=== PATIENT | female | born 1995 | race African-American/Black ===

== ENCOUNTER 2020-04-26 04:13 | Emergency (ER) | payer SELFPAY ==
--- NOTE | 2020-04-26 04:41 | Event Note ---
Date: 04/26/20 The patient was evaluated in the emergency department for symptoms described in the history of present illness. He/she was evaluated in the context of the global COVID-19 pandemic, which necessitated consideration that the patient might be at risk for infection with the virus that causes COVID-19. Institutional protocols and algorithms that pertain to the evaluation of patients at risk for COVID-19 are in a state of rapid change based on information released by regulatory bodies including the CDC and federal and state organizations. These policies and algorithms were followed during the patient's care in the emergency department. Please note that these policies, procedures and recommendations changed on a rapid basis. 24-year-old female, brought to the hospital by emergency medical services. EMS states they picked up the patient at a local gas station. Patient states that she was in a car, with a friend, and started to feel anxious, and walked outside and discussed with the crisis counselor on the phone. She then called 911. The patient is alert and oriented to name, place, location, and month. The patient is not homicidal or suicidal. She does not want to overdose. She does not have access to guns or to firearms. However she seems anxious, somewhat paranoid, and somewhat distracted. She states that a few months, or a few years ago, she was treated for neurosyphilis. She states that she was on penicillin injections, but has not received an injection in 4 to 5 months. She also complains of left ocular discomfort, and floaters. She has no meningeal signs. She is alert and oriented to name, place, location and month, able to add 4+4, subtract 100-7, and recall 3 out of 3 words at x0, and 5 minutes. She has no meningeal signs. She states she has been treated at [facility] in the past. She does not have meningeal signs at this time. Obtain psychiatric consultation, old medical records, appropriate laboratory studies, visual acuity.
[2020-04-26 05:16] LABS: Basophils # (Auto) 0.1 K/mm3 (0.0-0.1); Basophils % (Auto) 0.7 % (0.0-1.8); Eosinophils % (Auto) 0.6 % (0.0-4.3); Hematocrit 41.2 % (30.3-42.9); Lymphocytes # (Auto) 1.9 K/mm3 (1.2-5.4); Lymphocytes % (Auto) 23.6 % (13.4-35.0); Mean Corpuscular HGB Conc 34 % (30-34); Mean Corpuscular Volume 90 fl (79-97); Monocytes # (Auto) 0.7 K/mm3 (0.0-0.8); Monocytes % (Auto) 8.4 % (0.0-7.3); Platelet Count 487 K/mm3 (140-440); Red Blood Count 4.57 M/mm3 (3.65-5.03); Red Cell Distribution Width 13.7 % (13.2-15.2)
[2020-04-26 05:33] LABS: Alanine Aminotransferase 7 units/L (7-56); Albumin 4.7 g/dL (3.9-5); Blood Urea Nitrogen 6 mg/dL (7-17); Calcium 9.7 mg/dL (8.4-10.2); Hemolysis Index 7
[2020-04-26 05:34] LABS: BUN/Creatinine Ratio 20
[2020-04-26 05:36] LABS: Amphetamine Screen,Urine PRESUMPTIVE NEGATIVE; Benzodiazepines Screen,Urine PRESUMPTIVE NEGATIVE; Bilirubin,Urine NEG (Negative); Blood,Urine MOD (Negative); Cannabinoid Screen,Urine PRESUMPTIVE NEGATIVE; Cocaine Screen,Urine PRESUMPTIVE POSITIVE; Color,Urine Yellow (Yellow); Methadone Screen,Urine PRESUMPTIVE NEGATIVE; Mucus,Urine FEW /HPF; Opiate Screen,Urine PRESUMPTIVE NEGATIVE; Protein,Urine <15 mg/dL mg/dL (Negative); Urobilinogen,Urine < 2.0 mg/dL (<2.0)
[2020-04-26 06:57] VITALS: BP 102/52
== END 2020-04-26 06:15 | disposition left against medical advice (07) ==
LOC: ED 04:13 → EEVIPCON 04:13 → ED 06:15
DX: F41.9 Anxiety disorder, unspecified (principal); Z53.21 Procedure and treatment not carried out due to patient leaving prior to being seen by health care provider
CPT/HCPCS: 36415; 80053; 80307; 80320; 81001; 82550; 83735; 84443; 84702; 85025; G0480

== ENCOUNTER 2020-06-12 12:01 | Emergency (ER) | payer SELFPAY ==
[2020-06-12 12:56] VITALS: BP 107/56
== END 2020-06-12 18:30 | disposition left against medical advice (07) ==
LOC: ED 12:01
DX: G62.9 Polyneuropathy, unspecified (principal); Z53.21 Procedure and treatment not carried out due to patient leaving prior to being seen by health care provider

== ENCOUNTER 2020-06-13 04:30 | Emergency (ER) | payer SELFPAY ==
[2020-06-13] MEDS ORDERED: ACETAMINOPHEN 500 MG TAB PO ONE (04:44)
[2020-06-13] MEDS ORDERED: ONDANSETRON 4 MG ODT TAB PO ONE (04:44)
[2020-06-13 05:29] LABS: Alanine Aminotransferase 7 units/L (7-56); Albumin 5.4 g/dL (3.9-5); BUN/Creatinine Ratio 23; Blood Urea Nitrogen 18 mg/dL (7-17); Calcium 10.3 mg/dL (8.4-10.2); Hemolysis Index 82
[2020-06-13 05:36] LABS: Hematocrit 53.8 % (30.3-42.9); Hemoglobin 17.4 gm/dl (10.1-14.3); Mean Corpuscular HGB Conc 32 % (30-34); Mean Corpuscular Volume 96 fl (79-97); Platelet Count 371 K/mm3 (140-440); Red Blood Count 5.63 M/mm3 (3.65-5.03); Red Cell Distribution Width 14.3 % (13.2-15.2)
[2020-06-13 05:59] LABS: Bilirubin,Urine NEG (Negative); Blood,Urine SM (Negative); Color,Urine Yellow (Yellow); Mucus,Urine FEW /HPF; Urobilinogen,Urine < 2.0 mg/dL (<2.0)
[2020-06-13] MEDS ORDERED: SODIUM CHLORIDE 0.9% 1000 ML 1,000 ML IV ONE ×2 (06:27→09:20)
--- NOTE | 2020-06-13 06:56 | XRay Report ---
CHEST 1 VIEW INDICATION / CLINICAL INFORMATION: dizziness. COMPARISON: None available. FINDINGS: SUPPORT DEVICES: None. HEART / MEDIASTINUM: No significant abnormality. LUNGS / PLEURA: No significant pulmonary or pleural abnormality. No pneumothorax. ADDITIONAL FINDINGS: No significant osseous abnormality. IMPRESSION: 1. No acute findings. Signer Name: Blessing Monsivais MD Signed: 06/13/2020 6:51 AM Workstation Name: [id number]
--- NOTE | 2020-06-13 07:03 | Cat Scan Report ---
CT head/brain wo con INDICATION / CLINICAL INFORMATION: Patient complains of dizziness. TECHNIQUE: Axial CT imaging of the brain was obtained without contrast. Coronal and sagittal reformatted imaging obtained and reviewed. All CT scans at this location are performed using CT dose reduction for ALAR A by means of automated exposure control. COMPARISON: None available. FINDINGS: No intracranial hemorrhage, mass, or midline shift is noted. No extra-axial fluid collection or sugge stion of acute territorial infarction. There are calcifications in the basal ganglia bilaterally. Juwan tricular system and basilar cisterns are normal in appearance. Visualized paranasal sinuses and mastoid air cells are well aerated and clear. Shape of the calvarium is rounder than normal consistent with brachycephaly. IMPRESSION: 1. No acute intracranial abnormality. 2. Bilateral basal ganglia calcifications are present, which is unusual in a patient of this young ag e. Possibilities include genetic disorders including Down syndrome and tuberous sclerosis, infectious causes, metabolic causes and certain toxic substances such as carbon monoxide poisoning and lead poi soning. Signer Name: Blessing Monsivais MD Signed: 06/13/2020 6:59 AM Workstation Name: [id number]
--- NOTE | 2020-06-13 07:16 | Emergency Department Report ---
ED Dizziness HPI - General Chief Complaint: Dizziness Stated Complaint: DIZZINESS Time Seen by Provider: 06/13/20 07:00 Source: patient Mode of arrival: Ambulatory Limitations: No Limitations - History of Present Illness Initial Comments: 25-year-old female presents to ED with lightheadedness x1 day. Patient actually arrived to the ED on yesterday at around noon. Patient's name was called 3 times, but she did not answer, so she was taken out of the computer. Patient was found sleeping in the waiting room and was re-triaged. Patient arrived on yesterday via ambulance. She reports that she walked from a [employer] to a gas station to call EMS because she felt lightheaded. Patient states she does not live in the [employer] and she is not homeless. Patient states, "It's a long story." She reports she has a history of neurosyphilis with resulting neuropathy. Patient reports she has been having whole-body pain. She denies any fever, nausea, vomiting, cough, shortness of breath, loss of smell or taste. Patient requesting something to eat. She denies any drugs or alcohol use. Denies taking any medications at this time. Complaint: lightheadedness -: days(s) (1) Description: lightheadedness Severity: moderate Improves With: nothing Worsens With: nothing Associated Symptoms: denies: chest pain, cough, fever/chills, loss of appetite, shortness of breath - Related Data Allergies Allergy/AdvReac Type Severity Reaction Status Date / Time No Known Allergies Allergy Verified 06/12/20 12:50 ED Review of Systems ROS: Stated complaint: DIZZINESS Other details as noted in HPI Comment: All other systems reviewed and negative Constitutional: denies: chills, fever Respiratory: denies: cough, shortness of breath Cardiovascular: denies: chest pain Gastrointestinal: denies: abdominal pain, nausea, vomiting, diarrhea Musculoskeletal: myalgia Neurological: headache ED Past Medical Hx - Past Medical History Previous Medical History?: Yes Hx Psychiatric Treatment: Yes (Bipolar, Adjustment disorder) Additional medical history: Neuro Syphillis. Neuropathy - Surgical History Past Surgical History?: Yes Additional Surgical History: x 1 - Social History Smoking Status: Current Every Day Smoker Substance Use Type: None ED Physical Exam - General Limitations: No Limitations General appearance: alert, in no apparent distress - Head Head exam: Present: atraumatic, normocephalic - Eye Eye exam: Present: normal appearance, EOMI - ENT ENT exam: Present: mucous membranes moist - Neck Neck exam: Present: normal inspection - Respiratory Respiratory exam: Present: normal lung sounds bilaterally. Absent: respiratory distress - Cardiovascular Cardiovascular Exam: Present: normal rhythm, tachycardia - GI/Abdominal GI/Abdominal exam: Present: soft. Absent: distended, tenderness - Extremities Exam Extremities exam: Present: other (bruise to right wrist) - Neurological Exam Neurological exam: Present: alert, oriented X3 - Psychiatric Psychiatric exam: Present: normal affect, normal mood - Skin Skin exam: Present: warm, dry, intact, normal color ED Course Vital Signs 06/13/20 06/13/20 06/13/20 04:34 07:41 07:44 Temperature 97.5 F L Pulse Rate 115 H Respiratory 16 20 20 Rate Blood Pressure 104/64 Blood Pressure [Right] O2 Sat by Pulse 100 98 Oximetry 06/13/20 06/13/20 06/13/20 08:41 11:11 12:10 Temperature Pulse Rate 104 H 98 H Respiratory 18 18 18 Rate Blood Pressure Blood Pressure 79/43 [Right] O2 Sat by Pulse 99 99 Oximetry ED Medical Decision Making - Lab Data Result diagrams: 06/13/20 04:47 06/13/20 11:29 Critical care attestation.: If time is entered above; I have spent that time in minutes in the direct care of this critically ill patient, excluding procedure time. ED Disposition Clinical Impression: Dehydration, Cocaine abuse Disposition: DC-01 TO HOME OR SELFCARE Does the pt Need Aspirin: No Condition: Stable Instructions: Dehydration, Adult, [id number] Referrals: JAKOB IGLESIAS MD [Primary Care Provider] - 3-5 Days Time of Disposition: 12:20
[2020-06-13 08:36] LABS: Amphetamine Screen,Urine Negative; Benzodiazepines Screen,Urine Negative; Cannabinoid Screen,Urine Negative; Methadone Screen,Urine Negative; Opiate Screen,Urine Negative
[2020-06-13 08:52] LABS: Cocaine Screen,Urine Positive
[2020-06-13 12:08] LABS: Blood Urea Nitrogen 13 mg/dL (7-17); Calcium 7.9 mg/dL (8.4-10.2); Hemolysis Index 5
[2020-06-13 12:11] LABS: BUN/Creatinine Ratio 26
[2020-06-13 13:07] VITALS: BP 99/63
== END 2020-06-13 13:06 | disposition home or self-care (01) ==
LOC: ED 04:30
DX: R42 Dizziness and giddiness (principal); F14.10 Cocaine abuse, uncomplicated; F31.9 Bipolar disorder, unspecified; F17.200 Nicotine dependence, unspecified, uncomplicated
CPT/HCPCS: 36415; 70450; 71045; 80048; 80053; 80307; 81001; 82805; 83735; 84100; 84703; 85025; 96360; 96361; 99285; J7030; 80320; G0480; Q0162